=== PATIENT | male | born 1950 | race Caucasian/White ===

== ENCOUNTER 2024-05-26 12:46 | Emergency (ER) | payer MEDICARE, SELFPAY ==
[2024-05-26 12:51] VITALS: BP 173/88; PULSE 84; RESP 12; TEMP 36.6; O2SAT 99; BMI 27.4
--- NOTE | 2024-05-26 12:57 | ED_ITS ---
<Statement entered by Iglesia Jimenez DO - 05/26/24 14:16> Dr. Jimenez: I was immediately available in the department for consultation. Documentation has been reviewed. I agree with assessment and plan. HPI - Wound/Laceration General Chief Complaint: Wound/Laceration Stated Complaint: L Index Finger Laceration Time Seen by Provider: 05/26/24 12:57 Source: patient Mode of arrival: Ambulatory History of Present Illness HPI narrative: 74-year-old male presents this afternoon for a left index finger injury that occurred at approximately 8:00 p.m. last night. He was cutting some store bought crab when he sliced his finger. He points to the palmar aspect of his distal segment. He states he washed it with water and then applied paper towels for direct pressure. He states it still seems to be bleeding a little bit. He is left-handed dominant, he has underlying neuropathy, but he is denying any other injuries. He can not recall his last tetanus he believes it has been over 10 years. He has not on any blood thinners whatsoever. No other treatment tried. 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 All other systems are reviewed and are negative. Related Data Home Medications Medication Instructions Recorded Confirmed lisinopril 10 mg tablet 10 mg PO DAILY 05/05/24 05/05/24 tamsulosin 0.4 mg capsule 0.8 mg PO BEDTIME 05/05/24 05/05/24 Allergies Allergy/AdvReac Type Severity Reaction Status Date / Time bee venom protein (honey bee) Allergy Severe Anaphylaxis Verified 05/26/24 12:53 Review of Systems Review of Systems Narrative: All other systems reviewed and are negative. Patient History Medical History Hx of neurological disease Hx of primary hypertension Hx of Hodgkin's sarcoma Social History marital status: number of children: 1 Smoking Status: Never smoker alcohol intake: never caffeine: Yes Type(s) of exercise: walking and aerobic frequency: 1-2 times per week duration: 60-90 minutes/day Smoking Status: Never smoker Substance Use Type: marijuana Exam Initial Vital Signs Initial Vital Signs: Vital Signs Temperature 98 F 05/26/24 12:51 Pulse Rate 84 05/26/24 12:51 Respiratory Rate 12 05/26/24 12:51 Blood Pressure 173/88 H 05/26/24 12:51 Pulse Oximetry 99 05/26/24 12:51 Oxygen Delivery Method Room Air 05/26/24 12:51 Vital signs reviewed and are normal except for elevated blood pressure in a known hypertensive patient. Const Other: Smiling, ambulatory, no distress, he is here with his . Extrem Left upper extremity: full ROM, normal capillary refill and hand Details: tendon exam normal; no edema and joint enlargement noted Other: Left index finger palmar aspect distal segment small avulsion injury measuring 1 cm at its greatest length and approximately 3 mL at the width, no deeper structures seen, slow bleed, the wound is clean. Full active range of motion against resistance no tendon involvement. No involvement of the nail, sensory intact to baseline. Procedures [facility] Procedure Name of Procedure: Wound care, left index finger avulsion with active bleeding, area was cleansed with soap and water and vigorous scrubbing, bleeding controlled with direct pressure, minimal leakage so it was reinforced with Surgicel cut to size 1 cm by 1 cm reinforced with sterile 4 x 4 tube gauze and Coban tape. He is directly observed in the exam room for 15 minutes to make sure there is no rebleeding. Patient tolerated procedure well. Location: Left distal index finger palmar aspect. Course Course Course Narrative: Wound care performed, see the procedure note. His Tdap was updated today. Vital Signs Vital signs: Vital Signs - 8 hr 05/26/24 12:51 Temperature 98 F Pulse Rate 84 Respiratory Rate 12 Blood Pressure 173/88 H Pulse Oximetry 99 Oxygen Delivery Method Room Air MDM - Wound/Laceration MDM Narrative Medical decision making narrative: This was an avulsion, superficial no deeper structures, slow flow bleed. No tendon involvement, no focal deficits, bleeding was controlled after the wound was copiously cleaned and surgically scrubbed, reinforced with some Surgicel which he tolerated and a modified tube gauze dressing with Coban tape. Direct observation with his finger hand elevated for 15 minutes, no rebleed noted. Discharge Plan Departure Patient Disposition: Home Clinical Impression: Avulsion of finger tip Qualifiers: Encounter type: initial encounter Qualified Code(s): S61.209A - Unspecified open wound of unspecified finger without damage to nail, initial encounter Instructions: DI for Minor Laceration Activity Restrictions/Additional Instructions: This is known as a skin avulsion injury, there were no deeper structures, your wound was cleaned with soap and water and dressed using an absorbable bandage called Surgicel, this helps to control bleeding. Please keep the tube gauze dressing on along with a Coban tape for the next 48 hours. Gently remove and evaluate the wound, monitor for any signs of infection which would include increased swelling, pain, drainage, light bleeding or oozing is okay, but do return if you have blood soaking through the bandage, you feel lightheaded, weakness or any other concerns. I would like you to try to keep your hand and finger elevated as much as possible, keep her activity light, I know your left- handed but I would like you to avoid use of the left hand for the next 2 days avoid any gripping, writing, etcetera. You may take Tylenol as needed for pain. Your tetanus was updated today and it is good for 10 years. Prescriptions: No Action lisinopril 10 mg tablet 10 mg PO DAILY tamsulosin 0.4 mg capsule 0.8 mg PO BEDTIME Referrals: Miscellaneous,Doctor, [Primary Care Provider] - Stand Alone Forms: Patient Portal/API
[2024-05-26] MEDS: TET,DIPH,PERTUSS(ACELL),VAC/PF 0.5 ML SYRINGE IM (13:15)
== END 2024-05-26 13:40 | disposition home or self-care (01) ==
PROVIDERS: Emergency Provider Physician Assistant Medical
DX: S61.211A Laceration without foreign body of left index finger without damage to nail, initial encounter (principal); W26.0XXA Contact with knife, initial encounter; Z23 Encounter for immunization
CPT/HCPCS: 90471; 99283; 90715

== ENCOUNTER → 2025-06-08 17:10 | Outpatient (CLI) | payer MEDICARE, SELFPAY ==
[2025-06-08 18:15] LABS: Add Manual Diff / Slide Review NO; Hematocrit 41.7 % (41-53); Hemoglobin 14.3 g/dL (13.5-17.5); Lymphocytes Absolute Auto 400 /uL (1100-4500); Mean Corpuscular HGB Conc 34.3 % (30-36); Mean Corpuscular Hemoglobin 31.2 PG (26-34); Mean Corpuscular Volume 91.0 fL (80-100); Platelet Count 177 X10^3/uL (150-400)
[2025-06-08 20:22] LABS: Alanine Aminotransferase 29 IU/L (<50); Albumin 4.8 g/dL (3.5-5.0); Albumin Globulin Ratio 1.8 (1.0-2.8); Alkaline Phosphatase 73 U/L (38-126); Blood Urea Nitrogen 16 mg/dL (9-20); Calcium 9.7 mg/dL (8.4-10.2); Carbon Dioxide 27 mmol/L (22-32); Chloride 98 mmol/L (98-107); Cholesterol 173 mg/dL (140-199); Estimated Glomerular Filt Rate > 60 mL/min (>60); Globulin 2.6 g/dL (1.7-4.1); Glucose 89 mg/dL (70-99); HDL Cholesterol 54 mg/dL (40-60); HEMOLYSIS < 15 (0-50); Potassium 3.9 mmol/L (3.4-5.1); Sodium 136 mmol/L (137-145); Total Protein 7.4 g/dL (6.3-8.2); Triglycerides 100 mg/dL (35-150)
== END ==
PROVIDERS: PCP Family Medicine; Referring Provider Family Medicine; Visit Provider Family Medicine
DX: I10 Essential (primary) hypertension (principal); C81.95 Hodgkin lymphoma, unspecified, lymph nodes of inguinal region and lower limb; G99.0 Autonomic neuropathy in diseases classified elsewhere
CPT/HCPCS: 36415; 80053; 80061; 85025